=== PATIENT | female | born 1955 | race Caucasian/White ===

== ENCOUNTER → 2016-12-03 | Outpatient (CLI) | payer BC ==
[~2016-12-03] MED LIST: ATOR10TA82 PO; CALC0.2510 PO; CALCTAB5 PO; CHOL1000 PO; DILT180C70 PO; DOXY100C PO; GLC/500 PO
[2016-12-03 09:20] LABS: BASO % 0.6 %; BASO ABS # 0.04 K/uL (0-0.2); COMPLETE YES; HEMATOCRIT 42.2 % (37-47); IG% 0.2 %; LYMPH % 35.1 %; LYMPH ABS # 2.28 K/uL (1.2-3.4); MEAN CELL VOLUME 90.2 fL (80-100); MEAN CORPUSCULAR HEMOGLOBIN 30.1 pg (25-34); MEAN CORPUSCULAR HGB CONC 33.4 g/dl (32-36); MEAN PLATELET VOLUME 10.1 fL (7.4-10.4); NEUT % 56.1 %; PLATELET COUNT 238 K/uL (130-400); RED BLOOD COUNT 4.68 M/uL (4.2-5.4)
[2016-12-03 09:28] LABS: URINE APPEARANCE CLEAR (CLEAR); URINE BILIRUBIN NEG (NEG); URINE COLOR YELLOW; URINE EPITHELIAL CELL AUTO 0-5 /lpf (0-5); URINE NITRITE NEG (NEG); URINE PH 6.5 (4.5-7.5); URINE SPECIFIC GRAVITY 1.007 (1.000-1.030); UROBILINOGEN NEG (NEG); ZZUR CULT IF INDIC CLEAN CATCH NO
[2016-12-03 09:41] LABS: ESTIMATED AVERAGE GLUCOSE 140 mg/dl; HA1C FLAG Normal (Normal)
[2016-12-03 09:48] LABS: ALT/SGPT 37 U/L (12-78); AST/SGOT 25 U/L (15-37); BLOOD UREA NITROGEN 12 mg/dl (7-18); BUN/CREATININE RATIO 15.1 (10-20); CALCIUM 9.3 mg/dl (8.5-10.1); CARBON DIOXIDE 28 mmol/L (21-32); CHLORIDE 106 mmol/L (98-107); CREATININE 0.82 mg/dl (0.60-1.20); GLUCOSE 108 mg/dl (70-99); POTASSIUM 3.9 mmol/L (3.5-5.1); SODIUM 143 mmol/L (136-145)
[2016-12-03 09:50] LABS: ALB/GLOB RATIO 1.2 (0.9-2); ALKALINE PHOSPHATASE 114 U/L (45-117)
[2016-12-03 09:58] LABS: MANUAL MICROSCOPIC REQUIRED? NO; REVIEW REQ? NO
== END | disposition home or self-care (01) ==
LOC: C.LAB 08:44
PROVIDERS: ATTEND Internal Medicine
DX: E83.51 Hypocalcemia (principal); M81.0 Age-related osteoporosis without current pathological fracture; R73.03 Prediabetes

== ENCOUNTER → 2017-01-05 | Outpatient (CLI) | payer BC ==
--- NOTE | 2017-01-05 17:34 | DIAGNOSTIC IMAGING REPORT ---
LEFT HAND MIN 3 VIEWS ROUTINE, RIGHT HAND MIN 3 VIEWS ROUTINE CLINICAL HISTORY: M19.049 Hand arthritis. Rheumatoid arthritis. COMPARISON STUDY: None. FINDINGS: No fracture or dislocation within the right or left hand. Mild soft tissue swelling at the DIP and PIP joints of the hands. No erosions identified. The bones are osteopenic. Mild cartilage space at the STT joint and first carpometacarpal joints. There is also mild cartilage space narrowing at the MCP and PIP joints. Severe cartilage space narrowing with large marginal osteophytes at the DIP joints. IMPRESSION: 1. Bilateral hand osteoarthritis as described above most pronounced at the DIP joints. 2. Osteopenia. 3. No erosions identified within the hands. Electronically signed by: Trevin Siddiqui M.D. 01/05/2017 5:33 PM Dictated Date/Time: 01/05/2017 5:31 PM
[2017-01-05 19:38] LABS: LYME DISEASE AB IGG NEG (NEG); LYME DISEASE AB IGM NEG (NEG)
[2017-01-06 07:17] LABS: ESTIMATED AVERAGE GLUCOSE 140 mg/dl; HA1C FLAG Normal (Normal)
== END | disposition home or self-care (01) ==
LOC: C.RAD 16:42
PROVIDERS: ATTEND Internal Medicine
DX: M19.041 Primary osteoarthritis, right hand (principal); M19.042 Primary osteoarthritis, left hand; M85.842 Other specified disorders of bone density and structure, left hand

== ENCOUNTER 2017-01-07 14:56 | Emergency (ER) | payer BC ==
[~2017-01-07] VITALS: Ht 149.9 cm; Wt 65.0 kg
[~2017-01-07 14:56] MED LIST changes: -CALC0.2510 PO; -DOXY100C PO; -GLC/500 PO
[2017-01-07 15:00] VITALS: TEMP 36.7; Ht 149.9 cm; Wt 65.0 kg
[2017-01-07] MEDS ORDERED: ALBUT/IPRATROP 3MG/0.5MG NEB 3 ML VIAL INH STA (15:44)
[2017-01-07] MEDS ORDERED: SODIUM CHLORIDE 0.9% 1000ML 1,000 ML IV STA (15:44)
[2017-01-07] MEDS ORDERED: CALC0.2510 PO (16:04)
[2017-01-07] MEDS ORDERED: GLC/500 PO (16:05)
[2017-01-07 16:30] LABS: BASO % 0.2 %; BASO ABS # 0.01 K/uL (0-0.2); COMPLETE YES; HEMATOCRIT 38.6 % (37-47); LYMPH % 28.5 %; LYMPH ABS # 1.19 K/uL (1.2-3.4); MEAN CELL VOLUME 89.6 fL (80-100); MEAN CORPUSCULAR HEMOGLOBIN 30.2 pg (25-34); MEAN CORPUSCULAR HGB CONC 33.7 g/dl (32-36); MEAN PLATELET VOLUME 9.8 fL (7.4-10.4); MONO % 5.5 %; NEUT % 64.8 %; PLATELET COUNT 177 K/uL (130-400); RED BLOOD COUNT 4.31 M/uL (4.2-5.4); WHITE BLOOD COUNT 4.17 K/uL (4.8-10.8)
[2017-01-07 16:47] LABS: BUN/CREATININE RATIO 14.4 (10-20); CREATININE 0.75 mg/dl (0.60-1.20); POTASSIUM 3.4 mmol/L (3.5-5.1)
--- NOTE | 2017-01-07 17:28 | DIAGNOSTIC IMAGING REPORT ---
TWO VIEW CHEST CLINICAL HISTORY: Cough and dyspnea. FINDINGS: PA and lateral chest radiographs are compared to study dated 06/15/2015. The cardiomediastinal silhouette is unremarkable. Chronic interstitial thickening is similar to previous. There are patchy airspace opacities identified in the right upper lobe. The left lung appears clear. No pleural effusion or pneumothorax is seen. The skeletal structures are osteopenic. The bony thorax appears intact. IMPRESSION: There are patchy airspace opacities identified in the right upper lobe. This could represent pneumonia in the proper clinical setting. Clinical correlation will be required and radiographic follow-up to resolution is recommended. Electronically signed by: Jose Hays M.D. 01/07/2017 5:27 PM Dictated Date/Time: 01/07/2017 5:25 PM
[2017-01-07] MEDS ORDERED: DOXYCYCLINE HYCLATE 100 MG CAP PO STA (17:42)
[2017-01-07] MEDS ORDERED: DOXY100C PO (17:47)
--- NOTE | 2017-01-07 17:48 | EMERGENCY ROOM VISIT NOTE ---
History First contact with patient: 15:35 Chief Complaint: COUGH Stated Complaint: COUGH,DIZZINESS,WEAKNESS History of Present Illness The patient is a 61 year old female who presents to the Emergency Room with complaints of cough 5 days. The patient states that she has had a dry, tickling cough for the past 5 days. She states she has been running low-grade fevers. She was seen at urgent care earlier this week and given a prescription for Tessalon Perles. She states these do seem to help her cough at times. The cough has not been productive. She states that today, she was not hungry and did not eat much for breakfast or lunch. She was lightheaded and states that she had an episode where she felt like she had to pass out. She denies syncope. She does not smoke. She does report that 2 weeks ago, she drove home from [place] which was a [address] with [facility]. She denies hormone use. She denies any history of COPD or asthma. She denies any history of blood clots. She denies neck pain, headache, abdominal pain, nausea or vomiting. She denies hemoptysis. Review of Systems A complete 10 point review of systems was reviewed with the patient with pertinent positives and negatives as per history of present illness. All else were negative. Past Medical/Surgical History Medical Problems: (1) HTN (hypertension) Social History Smoking Status: Never Smoker Alcohol Use: none Drug Use: none Marital Status: Housing Status: lives with significant other Occupation Status: employed Current/Historical Medications Scheduled Atorvastatin (Lipitor), 10 MG PO QPM Calcitriol (Rocaltrol Cap), 0.25 MCG PO BID Diltiazem Hcl (Diltiazem Hcl), 180 MG PO DAILY Doxycycline Hyclate (Vibramycin), 100 MG PO BID Metformin Hcl (Glucophage), 500 MG PO BID Allergies Coded Allergies: Alendronate (Verified Allergy, Unknown, SEVERE ACID REFLUX, 06/15/15) Atenolol (Verified Allergy, Unknown, PALPITATIONS, 06/15/15) Mepivacaine (Verified Allergy, Unknown, TACHYCARDIA, 06/15/15) Metoprolol (Verified Allergy, Unknown, PALPITATIONS, 06/15/15) Codeine (Verified Adverse Reaction, Mild, GI upset, 06/15/15) Risedronate (Verified Adverse Reaction, Unknown, SEVERE REFLUX, 06/15/15) Physical Exam Vital Signs Date Time Temp Pulse Resp B/P (MAP) Pulse Ox O2 Delivery O2 Flow Rate FiO2 01/07/17 18:17 78 18 144/72 98 01/07/17 16:40 97 Room Air 01/07/17 15:00 36.7 95 18 126/78 94 Room Air Physical Exam VITALS: Vitals are noted on the nurse's note and reviewed by myself. Vital signs stable. GENERAL: This is a 61-year-old female, in no acute distress, nondiaphoretic, well-developed well-nourished. SKIN: The skin was without rashes. EARS: External auditory canals clear, tympanic membranes pearly busby without erythema or effusion bilaterally. EYES: Pupils equal round and reactive to light and accommodation. Conjunctivae without injection, sclerae without icterus. MOUTH: Mucous membranes moist. Tonsils are not enlarged. Pharynx without erythema or exudate. NECK: Supple without nuchal rigidity. No lymphadenopathy. HEART: Regular rate and rhythm without murmurs gallops or rubs. LUNGS: Clear to auscultation bilaterally without wheezes, rales or rhonchi. No retractions or accessory muscle use. ABDOMEN: soft, nontender. MUSCULOSKELETAL: full range of motion, strength 5/5. NEURO: Patient was alert and oriented to person place and time. Normal sensation to light and sharp touch. No focal neurological deficits. Medical Decision & Procedures ER Provider Diagnostic Interpretation: TWO VIEW CHEST CLINICAL HISTORY: Cough and dyspnea. FINDINGS: PA and lateral chest radiographs are compared to study dated 06/15/2015. The cardiomediastinal silhouette is unremarkable. Chronic interstitial thickening is similar to previous. There are patchy airspace opacities identified in the right upper lobe. The left lung appears clear. No pleural effusion or pneumothorax is seen. The skeletal structures are osteopenic. The bony thorax appears intact. IMPRESSION: There are patchy airspace opacities identified in the right upper lobe. This could represent pneumonia in the proper clinical setting. Clinical correlation will be required and radiographic follow-up to resolution is recommended. Laboratory Results 01/07/17 16:15 Red Blood Count 4.31, Mean Corpuscular Volume 89.6, Mean Corpuscular Hemoglobin 30.2, Mean Corpuscular Hemoglobin Concent 33.7, Mean Platelet Volume 9.8, Neutrophils (%) (Auto) 64.8, Lymphocytes (%) (Auto) 28.5, Monocytes (%) (Auto) 5.5, Eosinophils (%) (Auto) 1.0, Basophils (%) (Auto) 0.2, Neutrophils # (Auto) 2.70, Lymphocytes # (Auto) 1.19, Monocytes # (Auto) 0.23, Eosinophils # (Auto) 0.04, Basophils # (Auto) 0.01 01/07/17 16:15 Test 01/07/17 16:15 White Blood Count 4.17 K/uL (4.8-10.8) Red Blood Count 4.31 M/uL (4.2-5.4) Hemoglobin 13.0 g/dL (12.0-16.0) Hematocrit 38.6 % (37-47) Mean Corpuscular Volume 89.6 fL (80-100) Mean Corpuscular Hemoglobin 30.2 pg (25-34) Mean Corpuscular Hemoglobin Concent 33.7 g/dl (32-36) Platelet Count 177 K/uL (130-400) Mean Platelet Volume 9.8 fL (7.4-10.4) Neutrophils (%) (Auto) 64.8 % Lymphocytes (%) (Auto) 28.5 % Monocytes (%) (Auto) 5.5 % Eosinophils (%) (Auto) 1.0 % Basophils (%) (Auto) 0.2 % Neutrophils # (Auto) 2.70 K/uL (1.4-6.5) Lymphocytes # (Auto) 1.19 K/uL (1.2-3.4) Monocytes # (Auto) 0.23 K/uL (0.11-0.59) Eosinophils # (Auto) 0.04 K/uL (0-0.5) Basophils # (Auto) 0.01 K/uL (0-0.2) RDW Standard Deviation 43.4 fL (36.4-46.3) RDW Coefficient of Variation 13.1 % (11.5-14.5) Immature Granulocyte % (Auto) 0.0 % Immature Granulocyte # (Auto) 0.00 K/uL (0.00-0.02) D-Dimer 230 ug/L FEU (0-500) Anion Gap 7.0 mmol/L (3-11) Est Creatinine Clear Calc Drug Dose 65.4 ml/min Estimated GFR () 100.4 Estimated GFR (Non- 86.6 BUN/Creatinine Ratio 14.4 (10-20) Calcium Level 8.0 mg/dl (8.5-10.1) Medications Administered Medications (Trade) Dose Ordered Sig/Lala Route Start Time Stop Time Status Last Admin Dose Admin Sodium Chloride 1,000 ml @ 999 mls/hr Q1H1M STAT IV 01/07/17 15:44 01/07/17 16:44 DC 01/07/17 16:15 999 MLS/HR Albuterol/ Ipratropium (Duoneb) 3 ml NOW STAT INH 01/07/17 15:44 01/07/17 15:46 DC 01/07/17 16:03 3 ML Doxycycline Hyclate (Vibramycin Cap) 200 mg NOW STAT PO 01/07/17 17:42 01/07/17 17:44 DC 01/07/17 17:56 200 MG Albuterol (Ventolin Hfa Inhaler) 2 puffs NOW ONCE INH 01/07/17 18:00 01/07/17 18:01 DC 01/07/17 17:57 60 PUFFS ECG Rate (beats per minute): 76 Rhythm: normal sinus Findings: no acute ischemic change, no ectopy Change: no significant change ED Course The patient was evaluated as above. Labs were drawn and IV access was obtained. Patient was medicated with a DuoNeb treatment. Chest x-ray was performed and read by radiology as above. Patient was reevaluated and felt better after the DuoNeb treatment. She was given a home pack of doxycycline and Ventolin inhaler. Discharge instructions were reviewed with the patient. The patient verbalized understanding of my assessment and treatment plan and was discharged home in good condition. Medical Decision Differential diagnosis includes upper respiratory infection, pneumonia, PE, few PE exacerbation, asthma exacerbation, among others. The patient is a 61-year-old female who presents today complaining of persistent cough and presyncope today. EKG showed a normal sinus rhythm. No arrhythmia. Labs revealed no leukocytosis, anemia or concerning electrolyte abnormalities. D-dimer was not elevated. Chest x-ray did show evidence of a right upper lobe pneumonia. The patient will be placed on doxycycline. She was given a Ventolin inhaler. She was instructed to follow-up with her primary care provider for reevaluation. Based on the patient's presentation and work up, I feel the patient is stable for outpatient treatment. The patient was educated to return to the emergency department for any worsening of their current condition or new/concerning symptoms. She will follow up with her primary care provider. Medication reconciliation: I attest that I have personally reviewed the patient' s current medication list. Impression Primary Impression: Pneumonia Departure Information Dispostion Home / Self-Care Condition GOOD Prescriptions Doxycycline Hyclate (VIBRAMYCIN) 100 Mg Cap 100 MG PO BID for 7 Days, #14 CAP Prov: Yina Qiu .GEN 01/07/17 Referrals Brando Henderson M.D. (PCP) Patient Instructions My [facility] Additional Instructions You were prescribed doxycycline to be taken twice daily as prescribed. This is an antibiotic. All antibiotics have the potential to cause diarrhea. Stop this medication and contact a medical provider if you were to develop any significant adverse side effects including: wheezing, shortness of breath, passing out, vomiting, or a diffuse rash. Always take antibiotics as directed and COMPLETE the ENTIRE course regardless of the improvement of your symptoms. Use the Ventolin inhaler as needed for cough/shortness of breath. Continue to use the Tessalon Perles as needed. Rest and stay hydrated. Follow-up with your primary care provider within one week. Return to the emergency department with worsening difficulty breathing, chest pain or any other new/concerning symptoms. Problem Qualifiers Primary Impression: Pneumonia Pneumonia type: due to unspecified organism Laterality: right Lung location : upper lobe of lung Qualified Codes: J18.1 - Lobar pneumonia, unspecified organism
[2017-01-07] MEDS ORDERED: ALBUTEROL HFA 8 GM INHALER INH ONE (18:00)
[2017-01-07 18:17] VITALS: BP 144/72; PULSE 78; O2SAT 98
== END 2017-01-07 18:05 | disposition home or self-care (01) ==
LOC: C.EDB 14:57 → C.EDA 18:05
DX: J18.9 Pneumonia, unspecified organism (principal); I10 Essential (primary) hypertension; Z79.84 Long term (current) use of oral hypoglycemic drugs; Z79.899 Other long term (current) drug therapy; Z88.5 Allergy status to narcotic agent; Z88.8 Allergy status to other drugs, medicaments and biological substances

== ENCOUNTER → 2017-01-16 | Outpatient (CLI) | payer BC ==
[~2017-01-16] MED LIST changes: +CALC0.2510 PO; -CALCTAB5 PO; -CHOL1000 PO; +GLC/500 PO
[2017-01-16 12:15] LABS: BASO % 0.1 %; BASO ABS # 0.01 K/uL (0-0.2); COMPLETE YES; HEMATOCRIT 40.2 % (37-47); IG% 0.1 %; LYMPH % 28.6 %; LYMPH ABS # 2.01 K/uL (1.2-3.4); MEAN CELL VOLUME 89.9 fL (80-100); MEAN CORPUSCULAR HEMOGLOBIN 30.2 pg (25-34); MEAN CORPUSCULAR HGB CONC 33.6 g/dl (32-36); MEAN PLATELET VOLUME 9.9 fL (7.4-10.4); MONO % 6.1 %; NEUT % 64.1 %; PLATELET COUNT 335 K/uL (130-400); RED BLOOD COUNT 4.47 M/uL (4.2-5.4); WHITE BLOOD COUNT 7.04 K/uL (4.8-10.8)
[2017-01-16 12:31] LABS: BLOOD UREA NITROGEN 10 mg/dl (7-18); BUN/CREATININE RATIO 11.7 (10-20); CARBON DIOXIDE 23 mmol/L (21-32); CHLORIDE 107 mmol/L (98-107); CREATININE 0.84 mg/dl (0.60-1.20); GLUCOSE 161 mg/dl (70-99); POTASSIUM 3.9 mmol/L (3.5-5.1); SODIUM 141 mmol/L (136-145)
== END | disposition home or self-care (01) ==
LOC: C.LABBFT 10:29
PROVIDERS: ATTEND Physician Assistant Medical
DX: Z00.00 Encounter for general adult medical examination without abnormal findings (principal); J18.9 Pneumonia, unspecified organism

== ENCOUNTER → 2017-02-15 | Outpatient (CLI) | payer BC ==
[~2017-02-15] MED LIST changes: -ATOR10TA82 PO; +ATOR10TA88 PO
--- NOTE | 2017-02-15 18:46 | DIAGNOSTIC IMAGING REPORT ---
CHEST 2 VIEWS ROUTINE CLINICAL HISTORY: Follow-up pneumonia. Health maintenance. COMPARISON STUDY: History of January 17, 2017. FINDINGS: There is no pneumothorax or pleural effusion. Right upper lobe airspace opacity shown on exam of January 07, 2017 has resolved. Opacity along the left heart border is unchanged since earlier exams and suggests epicardial fat pad. Cardiac size is normal. There is no evidence of pulmonary edema. IMPRESSION: No acute cardiopulmonary findings. Resolution of right upper lobe pneumonia shown on exam of January 07, 2017. Electronically signed by: Shon Gerber M.D. 02/15/2017 6:45 PM Dictated Date/Time: 02/15/2017 6:43 PM
== END | disposition home or self-care (01) ==
LOC: C.RAD 16:58
PROVIDERS: ATTEND Physician Assistant Medical
DX: Z00.00 Encounter for general adult medical examination without abnormal findings (principal); J18.9 Pneumonia, unspecified organism

== ENCOUNTER → 2017-02-24 | Outpatient (CLI) | payer BC ==
--- NOTE | 2017-02-24 15:30 | MAMMOGRAPHY REPORT ---
UNILATERAL LEFT DIGITAL DIAGNOSTIC MAMMOGRAM TOMOSYNTHESIS WITH CAD AND TARGETED LEFT ULTRASOUND: 02/05 CLINICAL HISTORY: 61-year-old woman presents after her physician felt an area of thickening in the 11 :00 left breast. Patient is not currently able to feel the lump. No skin erythema or nipple dischar ge. Family history of breast cancer = grandmother. TECHNIQUE: Left breast tomosynthesis in addition to standard 2D mammography was performed. Current st udy was also evaluated with a Computer Aided Detection (CAD) system. COMPARISON: Comparison is made to exams dated: 06/09/2016 mammogram, 07/23/2014 mammogram, 07/22/2013 mammogram, 07/16/2012 mammogram, 06/20/2011 mammogram, and 06/17/2010 mammogram - [facility]. BREAST COMPOSITION: There are scattered areas of fibroglandular density in the left breast. FINDINGS: There are 2 stable circumscribed subcentimeter masses in the left upper outer quadrant, sta ble comparing back to at least 06/13/2008, most likely intramammary lymph nodes. There are a few dot ign rim calcifications in the anterior left breast. A triangular skin palpable marker overlies the u pper inner middle one third of the left breast, denoting the area of thickening pointed out by the pa tient. There is no evidence of a new suspicious mass, architectural distortion or cluster of microca lcifications, particularly near the area of palpable concern. Targeted ultrasound was performed in the 10:00, 11:00 and 12:00 axes of the left breast to evaluate f or the abnormality identified by the patient's physician. Sonographically normal tissue is seen with out a discrete solid or cystic mass. IMPRESSION: ACR BI-RADS CATEGORY 2: BENIGN, TARGETED ULTRASOUND ACR BI-RADS CATEGORY 2: BENIGN Stable mammographic appearance of the left breast. There is no mammographic or targeted sonographic evidence of malignancy, or other suspicious abnormality to explain the palpable finding in the left 1 1:00 breast. Therefore, clinical follow-up is recommended as biopsy of a clinically suspicious mass should not be precluded by negative imaging. Otherwise, recommend return to annual screening schedul e. Approximately 10% of breast cancers are not detected with mammography. A negative mammographic report should not delay biopsy if a clinically suggestive mass is present. Madie Flores M.D. ay/:02/24/2017 13:33:21 Financial Rep: Farzaneh Lobato, [facility] letter sent: Normal /2 BI-RADS Code: ACR BI-RADS Category 2: Benign Ultrasound BI-RADS: ACR BI-RADS Category 2: Benign
== END | disposition home or self-care (01) ==
LOC: C.MAMM 13:07
PROVIDERS: ATTEND Obstetrics & Gynecology
DX: R92.8 Other abnormal and inconclusive findings on diagnostic imaging of breast (principal)

== ENCOUNTER → 2017-03-07 | Outpatient (CLI) | payer BC | END | disposition home or self-care (01) | LOC: C.PATH 08:50 | PROVIDERS: ATTEND Obstetrics & Gynecology | DX: N64.59 Other signs and symptoms in breast (principal) ==

== ENCOUNTER → 2017-04-06 | Outpatient (CLI) | payer BC ==
[2017-04-06 12:27] LABS: CALCIUM 8.9 mg/dl (8.5-10.1)
[2017-04-06 12:34] LABS: CHOLESTEROL/HDL RATIO 2.5
[2017-04-12 16:43] LABS: IGA SERUM 180 mg/dL (81-463); TIS TRANS IGA 1 U/mL (<4)
== END | disposition home or self-care (01) ==
LOC: C.LABBFT 07:43
PROVIDERS: ATTEND Internal Medicine Endocrinology, Diabetes & Metabolism
DX: M81.0 Age-related osteoporosis without current pathological fracture (principal); E55.9 Vitamin D deficiency, unspecified; E78.00 Pure hypercholesterolemia, unspecified; R73.03 Prediabetes

== ENCOUNTER → 2017-06-12 | Outpatient (CLI) | payer BC ==
[~2017-06-12] MED LIST changes: +ATOR10TA82 PO; -ATOR10TA88 PO
--- NOTE | 2017-06-13 07:46 | MAMMOGRAPHY REPORT ---
BILATERAL DIGITAL SCREENING MAMMOGRAM TOMOSYNTHESIS WITH CAD: 06/12/2017 CLINICAL HISTORY: Routine screening. Patient has no complaints. TECHNIQUE: Breast tomosynthesis in addition to standard 2D mammography was performed. Current study was also evaluated with a Computer Aided Detection (CAD) system. COMPARISON: Comparison is made to exams dated: 02/24/2017 ultrasound, 02/24/2017 mammogram, 06/09/2016 mammogram, 07/22/2013 mammogram, 07/23/2014 mammogram, and 07/16/2012 mammogram - [facility]. BREAST COMPOSITION: There are scattered areas of fibroglandular density in both breasts. FINDINGS: There are a few benign rim calcifications in the breasts. No suspicious mass, architectura l distortion or cluster of suspicious microcalcifications is seen. IMPRESSION: ACR BI-RADS CATEGORY 1: NEGATIVE There is no mammographic evidence of malignancy. A 1 year screening mammogram is recommended. The pa tient will receive written notification of the results. Approximately 10% of breast cancers are not detected with mammography. A negative mammographic report should not delay biopsy if a clinically suggestive mass is present. Madie Flores M.D. ay/:06/12/2017 20:29:14 Medical Microbiologist: Jason Palm, M, [facility] letter sent: Normal 1/2 BI-RADS Code: ACR BI-RADS Category 1: Negative
== END | disposition home or self-care (01) ==
LOC: C.MAMM 08:33
PROVIDERS: ATTEND Obstetrics & Gynecology
DX: Z12.31 Encounter for screening mammogram for malignant neoplasm of breast (principal)

== ENCOUNTER → 2017-07-12 | Outpatient (CLI) | payer BC ==
[2017-07-12 15:34] LABS: BASO % 0.4 %; BASO ABS # 0.03 K/uL (0-0.2); COMPLETE YES; EOS % 2.3 %; HEMATOCRIT 39.3 % (37-47); IG% 0.2 %; LYMPH % 28.2 %; LYMPH ABS # 2.33 K/uL (1.2-3.4); MEAN CELL VOLUME 89.9 fL (80-100); MEAN CORPUSCULAR HEMOGLOBIN 29.5 pg (25-34); MEAN CORPUSCULAR HGB CONC 32.8 g/dl (32-36); MEAN PLATELET VOLUME 10.2 fL (7.4-10.4); MONO % 5.7 %; NEUT % 63.2 %; PLATELET COUNT 244 K/uL (130-400); RED BLOOD COUNT 4.37 M/uL (4.2-5.4); WHITE BLOOD COUNT 8.26 K/uL (4.8-10.8)
[2017-07-12 16:00] LABS: ALT/SGPT 26 U/L (12-78); AST/SGOT 19 U/L (15-37); BLOOD UREA NITROGEN 12 mg/dl (7-18); CALCIUM 9.5 mg/dl (8.5-10.1); CARBON DIOXIDE 26 mmol/L (21-32); CHLORIDE 106 mmol/L (98-107); CREATININE 0.78 mg/dl (0.60-1.20); GLUCOSE 107 mg/dl (70-99); POTASSIUM 3.6 mmol/L (3.5-5.1); SODIUM 139 mmol/L (136-145)
[2017-07-12 16:03] LABS: ALB/GLOB RATIO 1.3 (0.9-2); ALKALINE PHOSPHATASE 101 U/L (45-117)
== END | disposition home or self-care (01) ==
LOC: C.LAB1850 14:36
PROVIDERS: ATTEND Internal Medicine
DX: M81.0 Age-related osteoporosis without current pathological fracture (principal); E78.00 Pure hypercholesterolemia, unspecified; E55.9 Vitamin D deficiency, unspecified; L29.9 Pruritus, unspecified

== ENCOUNTER → 2017-07-26 | Outpatient (CLI) | payer BC ==
[2017-07-26 13:14] LABS: ESTIMATED AVERAGE GLUCOSE 126 mg/dl; HA1C FLAG Normal (Normal)
== END | disposition home or self-care (01) ==
LOC: C.LABBFT 08:24
PROVIDERS: ATTEND Internal Medicine
DX: E11.9 Type 2 diabetes mellitus without complications (principal)

== ENCOUNTER → 2018-03-28 | Outpatient (CLI) | payer BC, OTHER ==
[2018-03-28 12:39] LABS: BASO % 0.3 %; BASO ABS # 0.02 K/uL (0-0.2); EOS ABS # 0.15 K/uL (0-0.5); HEMATOCRIT 41.2 % (37-47); HEMOGLOBIN 13.5 g/dL (12.0-16.0); IG# 0.02 K/uL (0.00-0.02); LYMPH % 35.4 %; LYMPH ABS # 2.59 K/uL (1.2-3.4); MEAN CELL VOLUME 90.4 fL (80-100); MEAN CORPUSCULAR HEMOGLOBIN 29.6 pg (25-34); MEAN CORPUSCULAR HGB CONC 32.8 g/dl (32-36); MEAN PLATELET VOLUME 10.5 fL (7.4-10.4); MONO % 5.7 %; MONO ABS # 0.42 K/uL (0.11-0.59); NEUT % 56.3 %; NEUT ABS # 4.12 K/uL (1.4-6.5); PLATELET COUNT 304 K/uL (130-400); RED CELL DISTRIBUTION WIDTH CV 13.5 % (11.5-14.5); RED CELL DISTRIBUTION WIDTH SD 44.2 fL (36.4-46.3); WHITE BLOOD COUNT 7.32 K/uL (4.8-10.8)
[2018-03-28 13:01] LABS: ALKALINE PHOSPHATASE 107 U/L (45-117); ALT/SGPT 24 U/L (12-78); AST/SGOT 19 U/L (15-37); BLOOD UREA NITROGEN 10 mg/dl (7-18); CALCIUM 9.4 mg/dl (8.5-10.1); CARBON DIOXIDE 25 mmol/L (21-32); CREATININE 0.78 mg/dl (0.60-1.20); GLUCOSE 93 mg/dl (70-99); HEMOGLOBIN A1C 6.3 % (4.5-5.6); POTASSIUM 3.9 mmol/L (3.5-5.1); SODIUM 140 mmol/L (136-145); TOTAL PROTEIN 7.6 gm/dl (6.4-8.2)
[2018-03-28 13:31] LABS: CREATININE RANDOM URINE 28.2 mg/dl
== END | disposition home or self-care (01) ==
LOC: C.LABBFT 09:20
PROVIDERS: ATTEND Nurse Practitioner
DX: E11.9 Type 2 diabetes mellitus without complications (principal); M81.0 Age-related osteoporosis without current pathological fracture; E78.00 Pure hypercholesterolemia, unspecified; E55.9 Vitamin D deficiency, unspecified; R23.2 Flushing

== ENCOUNTER 2024-07-12 06:12 | Inpatient (IN) ==
--- NOTE | 2024-06-19 11:55 | PAT Medication Instructions ---
Medication Instructions Date of Service June 19, 2024 Home Medications Medication Instructions Recorded betamethasone dipropionate 0.05 % 1 applic topical UD PRN SKIN RASH 05/04/22 lotion #60 mL atorvastatin 20 mg tablet 20 mg PO QPM #90 tabs 07/05/23 diltiazem HCl 240 mg 240 mg PO QPM #90 caps 10/19/23 capsule,extended release 24 hr calcitriol 0.5 mcg capsule 0.5 mcg PO BID #180 caps 04/15/24 metformin 500 mg tablet,extended 500 mg PO BID #180 tabs 04/15/24 release 24 hr cholecalciferol (vitamin D3) 50 mcg (2,000 unit) capsule 2,000 units PO QAM mecobalamin (vitamin B12) 1,000 mcg chewable tablet 1,000 mcg PO QPM betamethasone dipropionate 0.05 % lotion 1 applic topical UD PRN SKIN RASH famotidine 20 mg tablet 20 mg PO QAM atorvastatin 20 mg tablet 20 mg PO QPM diltiazem HCl 240 mg capsule,extended release 24 hr 240 mg PO QPM olmesartan 20 mg tablet 10 mg PO QAM calcitriol 0.5 mcg capsule 0.5 mcg PO BID metformin 500 mg tablet,extended release 24 hr 500 mg PO BID gabapentin 300 mg capsule 300 mg PO BID STOP taking 24 hours before surgery betamethasone dipropionate 0.05 % lotion 1 applic topical UD PRN SKIN RASH DO NOT take the morning of surgery cholecalciferol (vitamin D3) 50 mcg (2,000 unit) capsule 2,000 units PO QAM olmesartan 20 mg tablet 10 mg PO QAM calcitriol 0.5 mcg capsule 0.5 mcg PO BID metformin 500 mg tablet,extended release 24 hr 500 mg PO BID Take morning of surgery With a small sip of water, OTHERWISE NOTHING TO EAT OR DRINK AFTER MIDNIGHT: famotidine 20 mg tablet 20 mg PO QAM gabapentin 300 mg capsule 300 mg PO BID Take evening before surgery mecobalamin (vitamin B12) 1,000 mcg chewable tablet 1,000 mcg PO QPM atorvastatin 20 mg tablet 20 mg PO QPM diltiazem HCl 240 mg capsule,extended release 24 hr 240 mg PO QPM calcitriol 0.5 mcg capsule 0.5 mcg PO BID metformin 500 mg tablet,extended release 24 hr 500 mg PO BID gabapentin 300 mg capsule 300 mg PO BID Other Notes If you have any questions please call us at [phone] or [phone] or [phone] or [phone]
--- NOTE | 2024-06-25 11:06 | Anesthesiology Consultation ---
Date of Service June 25, 2024 Assessment & Plan (1) Encounter for pre-operative examination: - Check BSG DOS - Infectious disease screening: Per assessment on 06/25/24- No known recent infectious disease contacts or current infectious disease symptoms. - S/P Laparoscopic Repair of Incisional Hernia Right Lower Quadrant with 10cm SurgiMesh (12/01/22): Grade view 1, MAC#3, ETT 7 at [facility] - PCP visit (06/14/24): "Patient's class I risk equals 0 which is 3.9%. Will review chest x-ray, EKG and laboratory workup when available. Will add addendum when studies are available." > Preop testing reviewed and final preop comment provided by PCP is separate workload message detailed below* - Preop testing: Preop CXR done 06/25/24 notes "Findings concerning for pulmonary nodule measuring 1.6 cm. No comparison to assess stability. Recommend CT chest for further evaluation." Chest CT done 06/27/24 and reviewed by PCP > PCP workload note (06/27/24): "Patient had her CT scan performed today. No pulmonary nodules noted. Corresponding abnormality on chest x-ray was from osteophytes on thoracic spine. She is is medically stable as she can be for upcoming surgery." Chart Review Chart Review: Acceptable Risk for Surgery and Patient seen in Pre Admission Testing Teaching & Discussion Pre-Anesthesia Teaching/Discussion Notes: Instructed NPO after midnight before surgery,except medications with 15 cc of water. Medication instructions provided according to the PAT guidelines. History Surgery Operation Date: 07/12/24 07:30 Proposed Procedures p L5-S1 Transforaminal Lumbar Interbody Fusion with Decompression, with Spinal Cord Monitoring - Jose Dewitt MD Height/Weight Height: 4 ft 11 in Weight: 64 kg Allergies Allergy/AdvReac Type Severity Reaction Status Date / Time oxycodone [From Percocet] AdvReac Severe Vomiting Verified 06/19/24 08:34 alendronate sodium AdvReac Intermediate Severe Verified 06/25/24 10:51 acid reflux atenolol AdvReac Intermediate Palpitation Verified 06/25/24 10:51 s empagliflozin AdvReac Intermediate Sore throat Verified 06/25/24 10:51 [From Jardiance] mepivacaine AdvReac Intermediate Tachycardia Verified 06/25/24 10:51 metoprolol AdvReac Intermediate Palpitation Verified 06/25/24 10:51 s risedronate sodium AdvReac Intermediate Severe Verified 06/25/24 10:51 reflux codeine AdvReac Mild GI upset Verified 06/19/24 08:34 Medications Home Medications Medication Instructions Recorded Confirmed Last Taken cholecalciferol (vitamin D3) 50 2,000 units PO QAM #30 caps 05/12/19 06/19/24 11/30/22 07:00 mcg (2,000 unit) capsule mecobalamin (vitamin B12) 1,000 1,000 mcg PO QPM 06/02/21 06/19/24 11/30/22 19:00 mcg chewable tablet betamethasone dipropionate 0.05 % 1 applic topical UD PRN SKIN RASH 05/04/22 06/19/24 08/24/22 lotion #60 mL famotidine 20 mg tablet 20 mg PO QAM 11/24/22 06/19/24 12/01/22 04:45 atorvastatin 20 mg tablet 20 mg PO QPM #90 tabs 07/05/23 06/19/24 Unknown diltiazem HCl 240 mg 240 mg PO QPM #90 caps 10/19/23 06/19/24 Unknown capsule,extended release 24 hr olmesartan 20 mg tablet 10 mg PO QAM 04/02/24 06/19/24 Unknown calcitriol 0.5 mcg capsule 0.5 mcg PO BID #180 caps 04/15/24 06/19/24 Unknown metformin 500 mg tablet,extended 500 mg PO BID #180 tabs 04/15/24 06/19/24 Unknown release 24 hr gabapentin 300 mg capsule 300 mg PO BID 06/19/24 06/19/24 Unknown Past Medical History Medical History Carotid bruit Hx noted per remote records. Carotid duplex done 08/21/13 for evaluation of carotid bruit- B/L ICA "withing normal limits by duplex imaging"/No stenosis found. No carotid bruit noted at PAT visit 06/25/24 Diabetes mellitus Diverticulosis of colon Foraminal stenosis of lumbosacral region GERD (gastroesophageal reflux disease) History of colon polyps History of endometriosis History of nephrolithiasis (04/2023) Unsure if passed, no current pain Hx of irritable bowel syndrome Hypercholesteremia Hypertension Irritable bowel syndrome Lumbosacral disc herniation Lumbosacral spondylosis Osteoporosis Exercise / Class Metabolic Activity II 4-5 Yardwork/Stairs/Walk up hill (one FS: No CP, no SOB) Past Family History Family History Brother Myocardial infarction Grandmother (Maternal) Breast cancer Stroke Sister Diabetes Obesity Mother Diabetes Heart disease Family history of colonic polyps Hypertension Father Heart disease Hypertension Other No family history of adverse response to anesthesia Denies family history of Ovarian cancer Prostate cancer Colorectal cancer Past Surgical History Surgical History H/O section 1981 History of anesthesia reaction Slow to wake after hernia repair (2014) History of incisional hernia repair Laparoscopic Repair of Incisional Hernia Right Lower Quadrant with 10cm SurgiMesh (12/01/22): Grade view 1, MAC#3, ETT 7 at [facility] Abd wall exploration resection inc fat hernia repair (2014) History of laparoscopy multiple Hx of colonoscopy S/P anal fissurectomy (2004) Tear in rectum repaired S/P appendectomy S/P arthroscopy of shoulder (2006) left Rotator cuff S/P dilation and curettage S/P YOLY-BSO (total abdominal hysterectomy and bilateral salpingo-oophorectomy) (2004) S/P wrist surgery (2010) right Past Anesthesia History No Family Hx of Anesthesia Complications and Other (Slow to wake after hernia repair (2014)) History of PONV No Hx of PONV and No Hx of Motion Sickness Social History Smoking Status: Never smoker Do You Dip or Chew Tobacco: No Hx Alcohol Use: No Hx Substance Use: No substance use type: does not use Review of Systems Patient denies chest pain, shortness of breath, dyspnea on exertion, fever, chills, cough, wheezing, palpitations. Physical Exam Vital Signs BP 115/72 P 80 TEMP 98.6 SP02 95%RA RESP 18 Physical Full cervical extension range of motion. Full TMJ range of motion. TMD 3 finger breaths Mallampati Score II Dentition: upper/lower partials Lungs: clear throughout to auscultation Cardiac: regular rate and rhythm, no murmurs noted Spine: normal Carotid arteries: negative bruit Extremities: no LE edema Lab Results Anesthesia Preop Results Results Anesthesia Widget: WBC 10.51 K/ul (4.8-10.8) 06/25/24 Hgb 12.0 g/dl (12.0-16.0) 06/25/24 Hct 36.5 % (37.0-47.0) L 06/25/24 Plt 299 K/uL (130-400) 06/25/24 Na 139 mmol/L (136-145) 06/25/24 K 4.1 mmol/L (3.5-5.1) 06/25/24 Cl 106 mmol/L (98-107) 06/25/24 CO2 23 mmol/L (21-32) 06/25/24 BUN 20 mg/dl (6-23) 06/25/24 Creat 1.12 mg/dl (0.6-1.2) 06/25/24 Glucose Level 157 mg/dl (70-99(Fasting)) H 06/25/24 PT 10.1 Seconds (9.0-12.0) 06/25/24 PTT 24 Seconds (21-31) 06/25/24 INR 0.9 (0.9-1.1) 06/25/24 HA1c 6.7 % (4.5-5.6) H 06/25/24 Blood Type A Positive 06/25/24 Antibody Screen NEGATIVE 06/25/24 Testing Electrocardiogram Date: 02/29/24 SR at 75bpm. "Normal ECG" Chest X-Ray Date: 06/25/24 FINDINGS: The cardiomediastinal silhouette and pulmonary vasculature appear w ithin normal limits. 1.6 cm nodular density seen on the lateral view posteriorly. No infiltrate, pleural effusion or pneumothorax. No acute osseous abnormality evident. IMPRESSION: Findings concerning for pulmonary nodule measuring 1.6 cm. No comparison to assess stability. Recommend CT chest for further evaluation. Chest CT Date: 06/27/24 IMPRESSION: 1. No acute intrathoracic abnormality. 2. No suspicious pulmonary nodules. The questioned nodular density on the comparison chest radiographs corresponds to anterior bridging osteophytes at T10-T11. 3. Extensive coronary artery calcifications. Echocardiogram Date: 03/22/24 EF 65-70%. No regional wall motion abnormality. No thrombus. Grade 1 diastolic dysfunction. No significant valvular disease. "This was essentially a normal study." Other Testing Cardiac event monitor Date: 03/28/24 Rare PACs/PVCs. Sinus tachycardia (max HR 106 bpm). Sinus bradycardia (min HR 53 bpm). No pauses greater than 2 seconds or high-grade AV block. 5 symptomatic episodes for shortness of breath, lightheadedness, and dizziness. All of these correlated to normal sinus rhythm.
[~2024-07-12 06:12] MED LIST changes: -ATOR10TA82 PO; -CALC0.2510 PO; -DILT180C70 PO; -GLC/500 PO; +LR 15ML/HR IV SCH
[2024-07-12] MEDS ORDERED: PROPOFOL IV EMULSION 10 MG/ML 20 ML VIAL IV ONE (06:45)
[2024-07-12] MEDS ORDERED: LIDOCAINE 2% 2 ML VIAL/AMP(20MG/ML) INFIL ONE (06:45)
[2024-07-12] MEDS ORDERED: ROCURONIUM BROMIDE 10 MG/ML 5 ML VIAL IV ONE (06:45)
[2024-07-12] MEDS ORDERED: MIDAZOLAM HCL 1 MG/ML 2ML VIAL ONE (06:45)
[2024-07-12] MEDS ORDERED: fentaNYL citrate PF 100 MCG/2 ML VIAL ONE (06:46)
[2024-07-12] MEDS ORDERED: SUCCINYLCHOLINE CHLORIDE 20 MG/ML 10 ML VIAL IV ONE (06:51)
[2024-07-12] MEDS ORDERED: REMIFENTANIL HCL 1 MG VIAL IV ONE ×3 (06:55→11:11)
[2024-07-12] MEDS: LR 60ML/HR IV SCH (06:56)
[2024-07-12] MEDS: SODIUM CHLORIDE 0.9% 1,000 ML IV SCH (06:57)
--- NOTE | 2024-07-12 07:22 | History & Physical Bridge Note ---
Date of Service July 12, 2024 History & Physical Bridge Note I have examined the patient, reviewed the History & Physical and in the interval since the performance of the History & Physical I have noted the following changes of clinical significance: no changes noted. Plan for L5-S1 TLIF, explained possible need to extend to L4 with screws if not able to get in large enough screws at L5. Patient agrees.
[2024-07-12] MEDS ORDERED: ATROPINE SULFATE 0.1 MG/ML 10ML SYR IV PRN (07:28)
[2024-07-12] MEDS ORDERED: ePHEDrine sulfate 50 MG/ML AMP IV PRN (07:28)
[2024-07-12] MEDS ORDERED: DROPERIDOL 5 MG/2 ML VIAL IV PRN (07:28)
[2024-07-12] MEDS ORDERED: PROMETHAZINE HCL 6.25 MG in SODIUM CHLORIDE 0.9% 50 ML IV PRN (07:28)
[2024-07-12] MEDS ORDERED: KETAMINE HCL 10MG/ML SYR ONE (08:42)
[2024-07-12] MEDS: ceFAZolin 2000MG 2,000 MG/15 ML SYR IV SCH ×2 (09:03→17:15)
[2024-07-12] MEDS ORDERED: ePHEDrine sulfate 50 MG/5 ML SYR ONE (09:29)
[2024-07-12] MEDS ORDERED: PHENYLEPHRINE 100MCG/ML 5ML SYR ONE (09:29)
[2024-07-12] MEDS ORDERED: PROPOFOL IV EMULSION 10 MG/ML 100 ML VIAL IV ONE ×2 (09:30→10:42)
[2024-07-12] MEDS ORDERED: PHENYLEPHRINE HCL 10 MG/ML VIAL ONE (10:43)
[2024-07-12] MEDS: HEPARIN (PORCINE) 1000 UNIT/ML 10 ML (CATH LAB USE ONLY) ONE (10:49)
[2024-07-12] MEDS ORDERED: SUGAMMADEX SODIUM 200 MG/2 ML VIAL IV ONE (11:59)
[2024-07-12] MEDS: FLOSEAL HEMOSTATIC MATRIX 10ML TOP ONE (12:08)
[2024-07-12] MEDS: VANCOMYCIN HCL 1000MG/20ML VIAL ONE (12:09)
[2024-07-12] MEDS ORDERED: ONDANSETRON INJ 2 MG/ML 2 ML VIAL ONE (12:09)
[2024-07-12] MEDS: BUPIVACAINE 0.5 % 5 MG/1 ML MPF 30ML VIAL ONE (12:10)
[2024-07-12] MEDS ORDERED: ACETAMINOPHEN 1000 MG/100 ML IV IV ONE (12:12)
--- NOTE | 2024-07-12 12:44 | Post Operative Brief Note ---
PG Immediate Post Op with CF Date of Surgery July 12, 2024 Pre & Post Diagnosis Operation Date: 07/12/24 07:30 Pre-Op Diagnosis: (2) Pars defect with spondylolisthesis (3) Lumbosacral disc herniation (4) Spondylolisthesis, lumbosacral region Post-Op Diagnosis: (2) Pars defect with spondylolisthesis (3) Lumbosacral disc herniation (4) Spondylolisthesis, lumbosacral region I identified the patient and participated in the time-out.: Yes Procedure Operation Date: 07/12/24 07:30 Actual Procedures p L5-S1 Transforaminal Lumbar Interbody Fusion with Decompression, with Spinal Cord Monitoring(Not Applicable) - Jose Dewitt MD Surgeon Jose Dewitt MD Technical Sales Support Specialist Kendell SANDHU Estimated Blood Loss 150 Findings Consistent with Post-Op Diagnosis Specimens Specimen Description: No specimen per surgeon Drains Ty Drain (15fr) and Koenig Catheter
--- NOTE | 2024-07-12 12:56 | Operative Report ---
PG Post Operative Report Pre & Post Diagnosis Operation Date: 07/12/24 07:30 Pre-Op Diagnosis: (1) Pars defect with spondylolisthesis (2) Lumbosacral disc herniation (3) Lumbosacral Radiculopathy Post-Op Diagnosis: (1) Pars defect with spondylolisthesis (2) Lumbosacral disc herniation (3) Lumbosacral Radiculopathy I identified the patient and participated in the time-out.: Yes Procedure 1. TRANSFORAMINAL LUMBAR INTERBODY FUSION, POSTEROLATERAL FUSION L5-S1 (92961) 2. PLACEMENT OF INTERBODY DEVICE FOR FUSION L5-S1 (29523) 3. POSTERIOR NON-SEGMENTAL SPINAL INSTRUMENTATION L5-S1 (97248) 4. COMPLETE LAMINECTOMY AT SITE OF INTERBODY FUSION L5 (40373) 5. USE OF STEREOTACTIC NAVIGATION FOR SPINAL INSTRUMENTATION (65146) 6. USE OF LOCAL AUTOGRAFT/ALLOGRAFT FOR SPINAL FUSION (13916, 78447) Surgeon Jose Dewitt MD Global Recruiter Kendell SANDHU Estimated Blood Loss 150 Findings Consistent with Post-Op Diagnosis Specimens None Drains Ty Drain Anesthesia Type General Complications none Disposition Accompanied Patient To Recovery: Yes Indications Patient was met in the clinic setting where patient had severe radiculopathy which did not respond to conservative care. We discussed continued conservative care versus lumbar interbody fusion to completely remove the pressure on the nerve as well as the remainder of the disc. Risks and benefits were discussed with the patient in clinic and elected to proceed. Risks and benefits are clearly documented in the patient's clinic note. Description of Procedure I met the patient in the preoperative holding area, we again discussed the procedure to be performed today and patient agreed to proceed. Patient was brought to the operating room and placed under general anesthesia. Neuro monitoring leads attached, SCDs for DVT prophylaxis, received IV antibiotic for infection prophylaxis. Positioning: Following intubation, the patient was placed prone onto the Gonzalez table. Maximum obtainable lumbar lordosis was achieved. Care was taken to position padding under potential pressure points. Prepping and Draping: Patient was prepped and draped in the usual sterile fashion. Verbal time-out was performed and identified the patient by name and date of , all were in agreement on the correct procedure and we elected to proceed. Incision and Exposure: An incision was made between the spinous processes of L5 and S1. Electrocautery was utilized to control all bleeding. I went through the subcutaneous layer exposing the lumbodorsal fascia. The subcutaneous layer was stripped off to the side to gain exposure to the fascial layers. I carried out subperiosteal dissection down along the spinous processes and out the lamina to expose the L5 and superior S1 lamina. I then dissected out to expose the sacral ala and L5 transverse processes bilaterally. The facet capsules were completely removed within the fusion range. Insertion of Pedicle Screws Bilaterally: Preoperative Ct scan was loaded to the [employer] robot, pedicle screws were planned using the software at L5 and S1 bilaterally. The robot was calibrated and attached to the patient with a PSIS pin. The robotic arm was moved to each pedicle screw start site sequentially. High speed Midas drill was used to breach the cortex through the robotic arm. Next a tap was passed through the arm and a screw tract was cannulated. Pedicle screws of the appropriate size were then placed bilaterally from using PowerEase electric mule driver through the robotic arm. EMG was performed on all screws with appropriate threshold without concern. Motor evoked potentials were run without change. Fluoro shots showed the screws in good position. Transforaminal Lumbar Interbody Fusions, Decompressions, Posterior Fusion: Next, a complete laminectomy was performed at the L5 level in preparation. The spinous process was removed with Leksell rongeur and morselized for bone graft. The lamina was thinned with a high-speed bur and the remainder of the lamina was removed with Kerrison punch with a Roebling used to protect the dura. Ligamentum flavum was completely removed at this level. This provided excellent decompression of the bilateral traversing S1 nerve roots over the disc space at L5-S1. This bilateral decompression was greater than required for insertion of an interbody cage. A complete facetectomy was performed at the symptomatic side to allow placement of the interbody cage. After adequate nerve root decompression, I turned my att ention to performing a transforaminal lumbar interbody fusion. I performed a complete diskectomy at L5-S1. Distraction was done with pedicle screw based distractors. The cartilaginous endplates were removed with a series of curettes and rongeurs. Sclerotic bleeding bone was seen at both endplates following complete evacuation and cleaning of the disc space. Local autograft bone harvested from the laminectomy was packed into the disc space along with allograft bone. A TLIF cage was selected after using a trial to determine the appropriate size. The cage was then impacted to appropriate depth under fluoroscopy and expanded.. I then decorticated the remaining posterior lateral facet joints at L5-S1. The posterolateral gutters were packed with allograft material as well as the remainder of the local bone harvested from the laminectomies to encourage posterolateral fusion. Preformed lumbar rods were then placed and set screws applied and final tightened. Intraoperative fluoroscopic images were obtained, confirming appropriate screw and cage position, and overall lordotic alignment of the motion segments. Vancomycin powder was placed on the wound edges during closure as a standard prophylactic measure. A standard layer closure was done over a deep drain using strata fix suture. Following completion of the closure and application sterile dry compressive dressing, the patient was transferred back to the supine position on stretcher. Anesthesia was reversed, the patient extubated, and brought to recovery room in stable condition having tolerated the procedure well. I attest to the content of the Intraoperative Record and any orders documented therein. Any exceptions are noted below.
[2024-07-12] MEDS: HYDROmorphone INJ 2 MG/ML SYR/VIAL IV PRN (13:35)
--- NOTE | 2024-07-12 14:03 | Fluoroscopy Report ---
FL lumbar spine 2-3V CLINICAL HISTORY: L5-S1 TRANSFORAMINAL LUMBAR INTERBODY FUSION WITH DECOMPRESSION COMPARISON STUDY: Lumbar spine MRI May 31, 2024. Lumbar spine CT June 19, 2024. FLUOROSCOPY TIME: 38 seconds. Ka,r: 23.74 mGy FLUOROSCOPIC IMAGES: 7 FINDINGS: Fluoroscopy was provided during L5-S1 decompression and interbody fusion. Mild anterolisthe sis of L5 on S1 was present on preoperative MRI and CT. There are no unexpected radiopaque foreign geraldine dies. Hardware is intact. IMPRESSION: Fluoroscopy provided during L5-S1 decompression and interbody fusion. ACT 112: Negative or not required by law. Electronically signed by: Shon Gerber M.D. 07/12/2024 1:56 PM
--- NOTE | 2024-07-12 14:37 | Anesthesiology Progress Note ---
Date of Service July 12, 2024 Anesthesia Post Procedure Vital Signs Vital Signs: Temp Pulse Pulse Resp BP Pulse Ox O2 Del Method 07/12/24 14:15 36.4 C L 86 16 133/72 96 Nasal Cannula 07/12/24 14:05 36.4 C L 86 12 135/69 97 Nasal Cannula 07/12/24 13:55 36.4 C L 88 10 L 134/69 97 Nasal Cannula 07/12/24 13:45 78 11 L 120/66 95 Nasal Cannula 07/12/24 13:35 78 10 L 135/72 100 Oxymask 07/12/24 13:25 69 7 L 125/67 100 Oxymask 07/12/24 13:15 67 12 100/60 98 Oxymask 07/12/24 13:05 60 10 L 115/47 L 98 Oxymask 07/12/24 12:55 77 12 125/66 99 Oxymask 07/12/24 12:46 36.0 C L 81 8 L 130/67 99 Oxymask 07/12/24 06:32 36.8 C 87 20 154/89 H 96 Room Air O2 Flow Rate 07/12/24 14:15 1 07/12/24 14:05 1 07/12/24 13:55 2 07/12/24 13:45 2 07/12/24 13:35 5 07/12/24 13:25 5 07/12/24 13:15 10 07/12/24 13:05 10 07/12/24 12:55 10 07/12/24 12:46 10 07/12/24 06:32 Pain Intensity Left Lower Back: Pain Intensity: 3 Transfer of Care Handoff Completed per policy Notes Mental Status: alert / awake / arousable and participated in evaluation Nausea / Vomiting: adequately controlled Pain: adequately controlled Airway Patency, RR, SpO2: stable & adequate BP & HR: stable & adequate Hydration State: stable & adequate Anesthetic Complications: no major complications apparent and Pt Satisfied with anesthetic care
[2024-07-12] MEDS ORDERED: PROMETHAZINE 12.5 MG/50.5 ML BAG IV PRN (14:50)
[2024-07-12] MEDS ORDERED: bisacodyL 10 MG SUPP PR PRN (14:50)
[2024-07-12] MEDS ORDERED: MAGNESIUM HYDROXIDE SUSP 30 ML UDC PO PRN (14:50)
[2024-07-12] MEDS ORDERED: DO NOT ADMINISTER FLU VACCINE PRN (14:50)
[2024-07-12] MEDS ORDERED: SOD PHOSPHATE/SOD BIPHOSPHATE ENEMA 132 ML BTL PR PRN (14:50)
[2024-07-12] MEDS ORDERED: ALUMINUM/MAGNESIUM SUSP 30 ML UDC PO PRN (14:50)
[2024-07-12] MEDS ORDERED: FAMOTIDINE 20 MG TAB PO PRN (14:50)
[2024-07-12] MEDS ORDERED: hydrOXYzine HCl 25 MG TAB PO PRN (14:50)
[2024-07-12] MEDS ORDERED: diphenhydrAMINE Capsule 25 MG CAP PO PRN (14:50)
[2024-07-12] MEDS ORDERED: HYDROmorphone INJ 1 MG/ML SYRINGE IV PRN (14:50)
[2024-07-12] MEDS ORDERED: DO NOT ADMINISTER PNEUMOCOCCAL VACCINE PRN (14:50)
[2024-07-12] MEDS ORDERED: NALOXONE HCL 0.4 MG/1 ML VIAL/CARP IV PRN (14:50)
[2024-07-12] MEDS ORDERED: BETAMETHASONE VAL 0.1% CR 15 GM EXT PRN (15:06)
[2024-07-12] MEDS ORDERED: HYDROCODONE/ACETAMOPHEN 5/325MG TAB PO PRN (15:09)
--- NOTE | 2024-07-12 15:11 | Hospitalist Consultation ---
Date of Consultation July 12, 2024 Assessment & Plan (1) Status post lumbar spine surgery for decompression of spinal cord: S/p lumbar spine surgery with Dr. Dewitt on 07/12 Perioperative antibiotics, pain control, fluids, and DVT PPx per the primary team Postop lumbar spine x-ray revealed hardware intact Trialed patient off oxygen in the room Drop from 95% SpO2 on 2L NC to approximately 92% on room air Continue to titrate off supplemental oxygen therapy gradually Agree with a.m. CBC, BMP; we will follow (2) Hypertension: Continue diltiazem Agree with holding a.m. olmesartan (3) Diabetes mellitus: Last A1c at 6.7% on 06/25/2024 Continue metformin Advance to T2DM diet as tolerated Added BSG CHECKS ACHS Added hypoglycemia meds (4) Hypercholesteremia: Continue atorvastatin Plan Agree with current medical decision making: Disposition: MedSurg Advance diet as tolerated VTE PPx: SCDs/teds Thank you for allowing us to precipitate in the care of this patient, please re ach out any questions or concerns. We will continue to follow. Supervising Physician Co-Signing Physician Notes Patient seen and examined, chart reviewed, case discussed with Trevin Guerra PA-C and I agree with the assessment and plan as above except as otherwise noted Labs and images reviewed Valerie is a 69-year-old female past medical history of hypertension, diabetes, hyperlipidemia who presented for lumbar spine decompression due to lumbosacral disc herniation and radiculopathy. We are consulted for postoperative management. Postoperatively she is normotensive, without tachycardia, and has a minimal 2 L oxygen requirement. No underlying lung disease. She is seen at bedside. Is doing well does have some pain at her lateral left calf immediately postop. No swelling and no edema. Her daughter lower extremity Doppler to rule out DVT, patient reports she does not wish for this to be done at time of ass essment as feels it is more muscle soreness and certainly time course is very quick for this and she shows no deep calf pain or swelling so is reasonable to monitor for now. Otherwise she has no complaints. Radicular pain she had preop seems to have improved. Agree with management of hypertension/diabetes as above. Pain control, activity recommendations, DVT prophylaxis per primary team. History of Present Illness Reason for Consultation: Postop medical management Requesting Physician: Jose Dewitt MD Attending Physician: Jose Dewitt MD History of Present Illness Valerie is a pleasant 69-year-old female with PMH of lumbosacral radiculopathy, lumbosacral disc herniation, spondylolithiasis, HTN, and HLD. She presented on 07/12 for an L5-S1 transforaminal lumbar interbody fusion and decompression with Dr. Dewitt. Per review of operative report, EBL was listed as 150 cc, general anesthesia was used, and there were no reported intraoperative complications. Per review of patient's vitals postop, patient's SpO2 has been in the low 90s postop; still requiring supplemental oxygen. At time of consult, she reports that her lower back pain is 3/10. LBP is 5/10 at worst. She characterizes it as a constant, dull achy pain around her incision site. No radiation down the legs. She thinks that rolling over on her right side and getting off her back might alleviate the pain. She denies any tingling going down her legs, but does endorse some numbness in both legs bilaterally. Patient reports she has not been up since her surgery. She does feel fatigued at this time, but has no new complaints other than a dry cough, and low back pain. She has not tried to eat or drink since the surgery. Koenig catheter in place. She denies saddle anesthesia. No prior history of DVT/PE. She is not on supplemental oxygen at baseline or CPAP at night. SpO2 95% on 2L at time of consult; vitals otherwise stable. ROS: Patient endorses low back pain, numbness in the lower extremities bilaterally, dry cough, and fatigue. Patient denies fever, chills, sweats, dizziness/lightheadedness, headaches, sore throat, chest pain, chest palpitations, SOB, pleuritic CP, abdominal pain, N/V/D, saddle anesthesia, or recent changes in urinary/bowel habits. ADDENDUM: Alerted by nursing staff around 1800 that patient appeared "white" in color. Also reported only 60 mL of blood from her drain. All vital stable at that time. Per nurse, she was pushing Ancef, when the patient reported that she felt lightheaded/dizzy/nauseous. No syncope. All symptoms resolved within 4 to 5 minutes. Reassessed patient at bedside, and patient is sitting up eating Jeregulo-Neri and broth in her bed. She appears well and reports that all her symptoms have resolved. She does have a white pallor, which was present on initial assessment. Will obtain CBC at this time. Allergies Allergy/AdvReac Type Severity Reaction Status Date / Time oxycodone [From Percocet] AdvReac Severe Vomiting Verified 07/12/24 06:34 alendronate sodium AdvReac Intermediate Severe Verified 07/12/24 06:34 acid reflux atenolol AdvReac Intermediate Palpitation Verified 07/12/24 06:34 s empagliflozin AdvReac Intermediate Sore throat Verified 07/12/24 06:34 [From Jardiance] mepivacaine AdvReac Intermediate Tachycardia Verified 07/12/24 06:34 metoprolol AdvReac Intermediate Palpitation Verified 07/12/24 06:34 s risedronate sodium AdvReac Intermediate Severe Verified 07/12/24 06:34 reflux codeine AdvReac Mild GI upset Verified 07/12/24 06:34 Home Medications Medication Instructions Recorded Confirmed Type cholecalciferol (vitamin D3) 50 2,000 units PO QAM #30 caps 05/12/19 07/12/24 History mcg (2,000 unit) capsule mecobalamin (vitamin B12) 1,000 1,000 mcg PO QPM 06/02/21 07/12/24 History mcg chewable tablet betamethasone dipropionate 0.05 % 1 applic topical UD PRN SKIN RASH 05/04/22 07/12/24 Rx lotion #60 mL famotidine 20 mg tablet 20 mg PO QAM 11/24/22 07/12/24 History diltiazem HCl 240 mg 240 mg PO QPM #90 caps 10/19/23 07/12/24 Rx capsule,extended release 24 hr olmesartan 20 mg tablet 10 mg PO QAM 04/02/24 07/12/24 History calcitriol 0.5 mcg capsule 0.5 mcg PO BID #180 caps 04/15/24 07/12/24 Rx metformin 500 mg tablet,extended 500 mg PO BID #180 tabs 04/15/24 07/12/24 Rx release 24 hr gabapentin 300 mg capsule 300 mg PO BID 06/19/24 07/12/24 History atorvastatin 20 mg tablet 20 mg PO QPM #90 tabs 07/08/24 07/12/24 Rx Patient History Medical History Carotid bruit Hx noted per remote records. Carotid duplex done 08/21/13 for evaluation of carotid bruit- B/L ICA "withing normal limits by duplex imaging"/No stenosis found. No carotid bruit noted at PAT visit 06/25/24 Diabetes mellitus Diverticulosis of colon Foraminal stenosis of lumbosacral region GERD (gastroesophageal reflux disease) History of colon polyps History of endometriosis History of nephrolithiasis (04/2023) Unsure if passed, no current pain Hx of irritable bowel syndrome Hypercholesteremia Hypertension Irritable bowel syndrome Lumbosacral disc herniation Lumbosacral spondylosis Osteoporosis Surgical History H/O section 1981 History of anesthesia reaction Slow to wake after hernia repair (2014) History of incisional hernia repair Laparoscopic Repair of Incisional Hernia Right Lower Quadrant with 10cm SurgiMesh (12/01/22): Grade view 1, MAC#3, ETT 7 at [facility] Abd wall exploration resection inc fat hernia repair (2014) History of laparoscopy multiple Hx of colonoscopy S/P anal fissurectomy (2004) Tear in rectum repaired S/P appendectomy S/P arthroscopy of shoulder (2006) left Rotator cuff S/P dilation and curettage S/P YOLY-BSO (total abdominal hysterectomy and bilateral salpingo-oophorectomy) (2004) S/P wrist surgery (2010) right Family History Brother Myocardial infarction Grandmother (Maternal) Breast cancer Stroke Sister Diabetes Obesity Mother Diabetes Heart disease Family history of colonic polyps Hypertension Father Heart disease Hypertension Other No family history of adverse response to anesthesia Denies family history of Ovarian cancer Prostate cancer Colorectal cancer Social History Smoking Status: Never smoker Second Hand Exposure: No; Do You Dip or Chew Tobacco: No; Tobacco Cessation Education Requested by Patient: No Hx Alcohol Use: No Hx Substance Use: No Preferred Language: Kazakh Communication Ability: Effective Visual Impairment: No Limitations Hearing Ability: Normal Director Of Oncology Required: No Beliefs That Will Affect Care: None marital status: Current Living Situation: Spouse current occupational status: retired current occupation: [employer] Other Information That Helps Us Care for You: No Feels Safe at Home: Yes Safety Concerns: Feels Safe At This Time Childhood Exposure to Second-Hand Smoke: No Diet: other and regular Diet Comment: healthy caffeine: Yes during the past year weight has: remained stable Dental Care, Regularly: Yes Physical Activity Frequency: 3-4 Times per Week Seatbelt Use: always Sunscreen Use: Yes Assistive Devices: Contacts and Glasses Assistive Devices Comment: 2 removable plates Review of Systems Review of Systems: See HPI above Physical Exam Physical Exam: General: no acute distress; lethargic; non-toxic appearing; well-nourished; cooperative; SpO2 95% on 2L NC HEENT: normocephalic, atraumatic; no scleral icterus; PERRLA; vision and hearing intact; dry, cracking around the lips Neck: supple; no lymphadenopathy; trachea midline Skin: warm, dry without signs of tenting; pallor; no cyanosis; no rashes, bruising, lesions, or erythema noted CV: chest wall NTP; RRR; S1/S2 normal; no murmurs/rubs/gallops; pulses intact and symmetric at radial, DP, and PT Lungs: no acute respiratory distress; symmetrical chest wall expansion; clear breath sounds across all lung slagado w/o adventitious sounds; no wheezing ABD: Soft, NTP; BS present; no rebound/guarding; no distention Back: Patient was able to roll onto her right side with assistance (nurse present in the room); her upper spine is NTP; lower spine is mildly TTP around incision site; surgical dressing without signs of drainage or erythema MSK: no tics or fasciculations; no edema noted in the LEs b/l, nonerythematous; patient demonstrates ability to wiggle toes bilaterally and lift legs off the bed, albeit slowly and with some pain Neuro: A&Ox3; normal mood and affect; fluent speech; no focal deficits; patient reports that sensation is intact and symmetric in the lower extremities bilaterally assessed via light touch at the feet Trialed patient off of oxygen Her SpO2 dropped from 95% on 2L NC to around 92% on room air Results & Data Results & Data Vital Signs (Past 12 Hours) Vital Signs Temp Pulse Pulse Resp BP Pulse Ox O2 Del Method 07/12/24 14:45 36.5 C 89 16 118/69 94 Nasal Cannula 07/12/24 14:15 36.4 C L 86 16 133/72 96 Nasal Cannula 07/12/24 14:05 36.4 C L 86 12 135/69 97 Nasal Cannula 07/12/24 13:55 36.4 C L 88 10 L 134/69 97 Nasal Cannula 07/12/24 13:45 78 11 L 120/66 95 Nasal Cannula 07/12/24 13:35 78 10 L 135/72 100 Oxymask 07/12/24 13:25 69 7 L 125/67 100 Oxymask 07/12/24 13:15 67 12 100/60 98 Oxymask 07/12/24 13:05 60 10 L 115/47 L 98 Oxymask 07/12/24 12:55 77 12 125/66 99 Oxymask 07/12/24 12:46 36.0 C L 81 8 L 130/67 99 Oxymask 07/12/24 06:32 36.8 C 87 20 154/89 H 96 Room Air O2 Flow Rate 07/12/24 14:45 1 07/12/24 14:15 1 07/12/24 14:05 1 07/12/24 13:55 2 07/12/24 13:45 2 07/12/24 13:35 5 07/12/24 13:25 5 07/12/24 13:15 10 07/12/24 13:05 10 07/12/24 12:55 10 07/12/24 12:46 10 07/12/24 06:32 Laboratory Results Abnormal lab results 07/12/24 07/12/24 Range/Units 06:36 12:54 POC Glucose 142 H 166 H (70-99) mg/dl Diagnostic Findings Lumbar Spine X-Ray 07/12/24 07:30 FL lumbar spine 2-3V CLINICAL HISTORY: L5-S1 TRANSFORAMINAL LUMBAR INTERBODY FUSION WITH DECOMPRESSION COMPARISON STUDY: Lumbar spine MRI May 31, 2024. Lumbar spine CT June 19, 2024. FLUOROSCOPY TIME: 38 seconds. Ka,r: 23.74 mGy FLUOROSCOPIC IMAGES: 7 FINDINGS: Fluoroscopy was provided during L5-S1 decompression and interbody fusion. Mild anterolisthesis of L5 on S1 was present on preoperative MRI and CT. There are no unexpected radiopaque foreign bodies. Hardware is intact. IMPRESSION: Fluoroscopy provided during L5-S1 decompression and interbody fusion. ACT 112: Negative or not required by law. Electronically signed by: Shon Gerber M.D. 07/12/2024 1:56 PM PG Care Time/CCT Total # of Minutes Spent Total Time Spent with Patient: Total time spent is greater than 50% in coordination of care (as documented) at patient's floor/unit and/or counseling patient: Coding [place] [address] IN/OBS CONSULT LVL 3,45M Patient Type Established Medical Decision Making Moderate Complexity Diagnoses Status post lumbar spine surgery for decompression of spinal cord Z98.890 Hypertension I10 Diabetes mellitus E11.9 Hypercholesteremia E78.00
[2024-07-12] MEDS: KETOROLAC TROMETHAMINE 15 MG/ML VIAL IV SCH (15:50)
[2024-07-12] MEDS ORDERED: GLUCOSE 10 TAB/TUBE PO PRN (15:52)
[2024-07-12] MEDS ORDERED: CARBOHYDRATES FOR HYPOGLYCEMIA PO PRN (15:52)
[2024-07-12] MEDS ORDERED: GLUCOSE 40% GEL 15 GM TUBE PO PRN (15:52)
[2024-07-12] MEDS ORDERED: DEXTROSE 50% 50 ML SYRINGE IV PRN (15:52)
[2024-07-12] MEDS: metFORMIN HCL ER 500 MG TABCR PO SCH (17:15)
[2024-07-12 18:58] LABS: Hematocrit (blood only) 30.7 % (37.0-47.0); Hemoglobin 9.8 g/dl (12.0-16.0); Mean Corpuscular Hemoglobin 29.1 pg (25.0-34.0); Mean Corpuscular Hgb Conc 31.9 g/dL (32.0-36.0); Mean Corpuscular Volume 91.1 fL (80.0-100.0); Mean Platelet Volume 9.5 fL (9.4-12.4); Platelet Count 240 K/uL (130-400); RDW Coefficient of Variation 13.4 % (11.5-14.5); RDW Standard Deviation 44.5 fL (36.4-46.3); Red Blood Count 3.37 M/uL (4.20-5.40); White Blood Count 13.79 K/ul (4.8-10.8)
[2024-07-12 19:14] LABS: Basophils # (auto) 0.01 K/uL (0.00-0.20); Basophils % (auto) 0.1 %; Echinocytes 1+; Immature Granulocytes % (auto) 0.7 %; Lymphocytes # (auto) 0.68 K/uL (1.20-3.40); Lymphocytes % (auto) 4.9 %; Monocytes # (auto) 0.16 K/uL (0.11-0.59); Monocytes % (auto) 1.2 %; Neutrophils # (auto) 12.84 K/uL (1.40-6.50); Neutrophils % (auto) 93.1 %
[2024-07-12] MEDS: ATORVASTATIN 20 MG TAB PO SCH (20:09)
[2024-07-12] MEDS: CALCITRIOL 0.25 MCG CAPSULE PO SCH (20:10)
[2024-07-12] MEDS: CYANOCOBALAMIN (B-12) 500 MCG TABLET PO SCH (20:10)
[2024-07-12] MEDS: GABAPENTIN 300 MG CAP PO SCH (20:10)
[2024-07-12] MEDS: DOCUSATE SODIUM/SENNA 50/8.6MG TAB PO SCH (20:10)
[2024-07-12] MEDS: dilTIAZem HCL 240 MG CAPCR PO SCH (20:10)
[2024-07-12] MEDS: INSULIN ASPART PER UNIT CHARGE SC SCH (22:22)
[2024-07-12] MEDS: ONDANSETRON 4 MG OD TAB PO PRN (22:26)
[2024-07-12] MEDS: oxyCODONE/ACETAMINOPHEN 5mg/325mg TAB PO PRN (22:58)
[2024-07-13] MEDS: POLYETHYLENE (MIRALAX) 17 GM PACK PO SCH (05:17)
[2024-07-13 06:28] LABS: Basophils # (auto) 0.02 K/uL (0.00-0.20); Basophils % (auto) 0.1 %; Eosinophils # (auto) 0.01 K/uL (0.00-0.50); Eosinophils % (auto) 0.1 %; Hematocrit (blood only) 27.2 % (37.0-47.0); Hemoglobin 8.8 g/dl (12.0-16.0); Immature Granulocytes # (auto) 0.14 K/uL (0.01-0.20); Immature Granulocytes % (auto) 0.8 %; Lymphocytes # (auto) 0.97 K/uL (1.20-3.40); Lymphocytes % (auto) 5.5 %; Mean Corpuscular Hemoglobin 29.4 pg (25.0-34.0); Mean Corpuscular Hgb Conc 32.4 g/dL (32.0-36.0); Mean Platelet Volume 9.9 fL (9.4-12.4); Monocytes # (auto) 0.64 K/uL (0.11-0.59); Monocytes % (auto) 3.6 %; Neutrophils # (auto) 15.82 K/uL (1.40-6.50); Neutrophils % (auto) 89.9 %; Platelet Count 241 K/uL (130-400); RDW Coefficient of Variation 13.3 % (11.5-14.5); RDW Standard Deviation 43.8 fL (36.4-46.3); Red Blood Count 2.99 M/uL (4.20-5.40)
[2024-07-13 06:52] LABS: BUN Creatinine Ratio 18.8 (10-20); Calcium 9.6 mg/dl (8.6-10.3); Creatinine Clr Calc Pharmacy 37.5 ml/min
--- NOTE | 2024-07-13 08:07 | Hospitalist Progress Note ---
Date of Service July 13, 2024 Assessment & Plan (1) Status post lumbar spine surgery for decompression of spinal cord: Plan: S/p lumbar spine surgery with Dr. Dewitt on 07/12 Trialed patient off oxygen in the room Drop from 95% SpO2 on 2L NC to approximately 92% on room air Continue to titrate off supplemental oxygen therapy gradually acute blood loss anemia, hgb 8.8, will follow no transfusion at this time (2) Hypertension: Plan: Continue diltiazem, reduce dose holding a.m. olmesartan (3) Diabetes mellitus: Plan: Last A1c at 6.7% on 06/25/2024 Continue metformin Advance to T2DM diet as tolerated Added BSG CHECKS ACHS Added hypoglycemia meds (4) Hypercholesteremia: Plan: Continue atorvastatin Plan VTE PPx: SCDs/teds Admission and Anticipated Discharge Date Admission Date: July 12, 2024 Subjective Patient is doing well still with VEGA drain with serosanguineous drainage Going to remove Koenig catheter to get up out of bed today. Other focal issues at this time Physical Exam Physical Exam: Awake alert appropriate no radicular pain or reduction in sensation Card exam is regular lungs are clear Abdomen NABS and soft Results & Data Results & Data Vital Signs (Past 12 Hours) Vital Signs Temp Pulse Resp BP Pulse Ox O2 Del Method 07/13/24 03:49 97.9 F 81 16 108/59 L 94 Room Air 07/12/24 23:30 98.2 F 88 16 102/54 L 96 Room Air Laboratory Results Reviewed CBC mild postoperative acute blood loss anemia mild leukocytosis Reviewed chemistry PG Care Time/CCT Total # of Minutes Spent Total Time Spent with Patient: Total time spent is greater than 50% in coordination of care (as documented) at patient's floor/unit and/or counseling patient: Coding Level of Care Code 14644 SUB INP/OBS CARE 3/50MIN Diagnoses Status post lumbar spine surgery for decompression of spinal cord Z98.890 Hypertension I10 Diabetes mellitus E11.9 Hypercholesteremia E78.00
--- NOTE | 2024-07-13 08:35 | XRay Report ---
EXAM: XR lumbar spine 2-3V CLINICAL HISTORY: Post op, lumbar surgery on 07/12/24 TECHNIQUE: X-ray images of the lumbar spine were obtained in 2 views: Anteroposterior (AP) and lateral projections. COMPARISON: X-ray dated 04/30/2024. FINDINGS: Alignment: Internal fixation at L5-S1 with intervertebral disc cage. Grade 1 anterolisthesis of L5 over S1. Vertebral Bodies: Vertebral bodies are of normal height and morphology. No evidence of fractures, compression deformities, or significant osseous lesions. Marginal osteophytes are seen at multiple levels. Intervertebral Disc Spaces: The rest of the intervertebral disc spaces are normal. Soft Tissues: Surgical sutures are noted on the skin midline at the L4 and L5 levels. Additional Findings: Multiple surgical sutures are noted in the pelvis. IMPRESSION: 1. Internal fixation at L5-S1 with intervertebral disc cage and a grade 1 anterolisthesis of L5 over S1. The listhesis measures 6.5 mm, previously was 10 mm on X-ray dated 04/30/2024. 2. Mild lumbar spondylosis. Disclaimer: A subtle bone abnormality or fracture may not be readily apparent on X-rays, thus clinical correlation and further imaging including follow-up CT, MRI, or follow-up X-rays are advised as needed. Electronically signed by Kira Villagomez 07-13-2024 08:34 AM
[2024-07-13] MEDS: CHOLECALCIFEROL 25 MCG (1000 UNITS) TAB PO SCH (08:59)
[2024-07-13] MEDS: FAMOTIDINE 20 MG TAB PO SCH (08:59)
[2024-07-13] MEDS ORDERED: METHOCARBAMOL 500 MG TABLET PO PRN (09:47)
--- NOTE | 2024-07-13 10:00 | Orthopedic Progress Note ---
Date of Service July 13, 2024 Assessment & Plan (1) S/P lumbar fusion: (2) Acute blood loss anemia: Hgb 8.8 this AM, vitals acceptable, will monitor Plan s/p TLIF SCDs, ambulate pain control - doing well with percocet and nausea meds cont drain dc shea when ambulating better after PT Subjective s/p TLIF, doing well this AM. Incisional soreness, no leg pain. Review of Systems All systems reviewed & are unremarkable except as noted in HPI & below. Physical Exam drain functioning 5/5 strength L2-S1 myotomes SILT L2-S1 dermatomes Results & Data Results & Data Diagnostic Findings xrays reviewed, good position of L5-S1 instrumentation and interbody spacer, sponylolisthesis improved from pre op PG Care Time/CCT Total # of Minutes Spent Total Time Spent with Patient: Total time spent is greater than 50% in coordination of care (as documented) at patient's floor/unit and/or counseling patient: Coding Level of Care Code 51889 Post Operative Follow-Up Diagnoses S/P lumbar fusion Z98.1 Acute blood loss anemia D62
[2024-07-13] MEDS: ACETAMINOPHEN 500 MG TAB PO PRN (10:22)
[2024-07-13] MEDS ORDERED: METHOCARBAMOL 750 MG TABLET PO PRN (11:48)
[2024-07-13] MEDS: HYDROmorphone INJ 0.5 MG/0.5 ML SYR IV PRN (12:48)
[2024-07-13 15:14] VITALS: RESP 16
[2024-07-13] MEDS: dilTIAZem HCL 120 MG CAPCR PO SCH (20:55)
--- NOTE | 2024-07-14 09:37 | Orthopedic Progress Note ---
Date of Service July 14, 2024 Assessment & Plan (1) S/P lumbar fusion: phuong bear as tolerated pain control mobilize will decrease suction on drains DVT study LLE cont drain hopefully home tomorrow (2) Acute blood loss anemia: vitals WNL, monitor for symptoms Subjective s/p TLIF, moving well with PT. Some intermittent LLE cramp, - felipe sign. Breathing well, pain controlled. Has not trialed muscle relaxer yet. Review of Systems All systems reviewed & are unremarkable except as noted in HPI & below. Physical Exam drain functioning neuro exam stable, no deficits - felipe sign Results & Data Results & Data Laboratory Results . Diagnostic Findings . PG Care Time/CCT Total # of Minutes Spent Total Time Spent with Patient: Total time spent is greater than 50% in coordination of care (as documented) at patient's floor/unit and/or counseling patient: Coding Level of Care Code 31565 Post Operative Follow-Up Diagnoses S/P lumbar fusion Z98.1 Acute blood loss anemia D62
--- NOTE | 2024-07-14 10:29 | Ultrasound Report ---
BILATERAL LOWER EXTREMITY VENOUS DOPPLER HISTORY: Acute pain and swallowing of the legs LLE cramps s/p surgery COMPARISON STUDY: None FINDINGS: There is normal compressibility, flow, and augmentation within the bilateral lower extremit y deep venous systems. IMPRESSION: No DVT within the right or left lower extremity. ACT 112: Negative or not required by law. Electronically signed by: Alexey Oneal M.D. 07/14/2024 10:27 AM
--- NOTE | 2024-07-14 13:37 | Hospitalist Progress Note ---
Date of Service July 14, 2024 Assessment & Plan (1) Status post lumbar spine surgery for decompression of spinal cord: Plan: S/p lumbar spine surgery with Dr. Dewitt on 07/12 Trialed patient off oxygen in the room Drop from 95% SpO2 on 2L NC to approximately 92% on room air Continue to titrate off supplemental oxygen therapy gradually acute blood loss anemia, hgb 8.8, will follow no transfusion at this time left calf pain, neg doppler for DVT will give vit b1, b12 and magnesium, check vit D level in am (2) Hypertension: Plan: Continue diltiazem, reduce dose holding a.m. olmesartan (3) Diabetes mellitus: Plan: Last A1c at 6.7% on 06/25/2024 Continue metformin Advance to T2DM diet as tolerated Added BSG CHECKS ACHS Added hypoglycemia meds (4) Hypercholesteremia: Plan: Continue atorvastatin Plan VTE PPx: SCDs/teds Admission and Anticipated Discharge Date Admission Date: July 12, 2024 Subjective Patient is doing well still with VEGA drain with serosanguineous drainage some calf pain, checked doppler, negative will try some muscle relaxation meds and topical creams Physical Exam Physical Exam: Awake alert appropriate no radicular pain or reduction in sensation Card exam is regular lungs are clear Abdomen NABS and soft left calf without swelling or chords Results & Data Results & Data Vital Signs (Past 12 Hours) Vital Signs Temp Pulse Resp BP Pulse Ox O2 Del Method 07/14/24 07:21 97.9 F 76 16 126/71 96 Room Air Laboratory Results review poc glucose ordered lab checks 07/15 PG Care Time/CCT Total # of Minutes Spent Total Time Spent with Patient: Total time spent is greater than 50% in coordination of care (as documented) at patient's floor/unit and/or counseling patient: Coding Level of Care Code 15009 SUB INP/OBS CARE 3/50MIN Diagnoses Status post lumbar spine surgery for decompression of spinal cord Z98.890 Hypertension I10 Diabetes mellitus E11.9 Hypercholesteremia E78.00
[2024-07-14] MEDS: THIAMINE HCL 100 MG in SYRINGE 9 ML IV STA (14:39)
[2024-07-14] MEDS: MAGNESIUM SULFATE / D5W 1 GM/100 ML BAG IV ONE (14:39)
[2024-07-14] MEDS: CYANOCOBALAMIN (B-12) 500 MCG TABLET PO ONE (14:40)
[2024-07-14] MEDS: ONDANSETRON INJ 2 MG/ML 2 ML VIAL IV PRN (15:03)
[2024-07-14 15:19] VITALS: TEMP 98.1
[2024-07-14 20:12] VITALS: O2SAT 92
[2024-07-15 07:13] VITALS: BP 127/75
[2024-07-15 08:33] LABS: Hematocrit (blood only) 28.1 % (37.0-47.0); Mean Corpuscular Hemoglobin 29.4 pg (25.0-34.0); Mean Corpuscular Volume 91.8 fL (80.0-100.0); Mean Platelet Volume 10.2 fL (9.4-12.4); Platelet Count 240 K/uL (130-400); RDW Coefficient of Variation 13.5 % (11.5-14.5); RDW Standard Deviation 45.2 fL (36.4-46.3); Red Blood Count 3.06 M/uL (4.20-5.40); White Blood Count 10.64 K/ul (4.8-10.8)
[2024-07-15] MEDS: METHOCARBAMOL 750 MG TABLET PO PRN (08:40)
[2024-07-15 08:41] LABS: BUN Creatinine Ratio 23.5 (10-20); Calcium 9.8 mg/dl (8.6-10.3); Creatinine Clr Calc Pharmacy 38.1 ml/min; Magnesium 1.6 mg/dl (1.7-2.4); Potassium 4.2 mmol/L (3.5-5.1)
[2024-07-15] MEDS ORDERED: METHOCARBAMOL 500 MG TABLET PO PRN (10:01)
--- NOTE | 2024-07-15 10:43 | Orthopedic Progress Note ---
Date of Service July 15, 2024 Assessment & Plan (1) Acute blood loss anemia: hgb stable, monitor (2) S/P lumbar fusion: leg pain improved but intermittent, responds well to muscle relaxer and pain meds dc drain, change dressing scds will check CT to evaluate screw position, appear to be in good position on xrays likely home later today as long as ok with hospital medicine and ct normal Subjective Reports intermittent left calf pain, dvt study negative. Likely recovery of nerve pain, she is ambulating, pain is not constant. Overall doing well and feels ready to go home, voiding. Review of Systems All systems reviewed & are unremarkable except as noted in HPI & below. Physical Exam neuro exam stable, no deficits drain functioning, minimal output and 70cc over 15 hours, will dc drain Results & Data Results & Data Laboratory Results . Diagnostic Findings negative dvt study PG Care Time/CCT Total # of Minutes Spent Total Time Spent with Patient: Total time spent is greater than 50% in coordination of care (as documented) at patient's floor/unit and/or counseling patient: Coding Level of Care Code 73653 Post Operative Follow-Up Diagnoses Acute blood loss anemia D62 S/P lumbar fusion Z98.1
--- NOTE | 2024-07-15 11:09 | Discharge Summary ---
Date of Service July 15, 2024 Principal Diagnosis Same as "Discharge Diagnosis" noted below under Discharge Instructions. Discharge Exam neuro exam stable, no deficits drain functioning, minimal output and 70cc over 15 hours, will dc drain Discharge Data Consultations 07/12/24 14:50 Consult Hospitalist Routine Procedures Performed Operation Date: 07/12/24 07:30 Actual Procedures p L5-S1 Transforaminal Lumbar Interbody Fusion with Decompression, with Spinal Cord Monitoring(Not Applicable) - Jose Dewitt MD Ordered Studies 07/12/24 07:30 FL lumbar spine 2-3V Routine 07/14/24 09:38 US venous doppler LE BI Urgent 07/15/24 10:49 CT lumbar spine wo con Routine Hospital Course (1) Acute blood loss anemia: (2) S/P lumbar fusion: (3) Diabetes mellitus: (4) Hypercholesteremia: (5) Hypertension: Hypertension type: unspecified Qualified Code(s): I10 - Essential (primary) hypertension (6) Spondylolisthesis, lumbosacral region: (7) Lumbosacral disc herniation: Plan Patient was admitted postoperatively for pain control and mobilization with physical therapy. They worked with physical therapy and met all goals. Pain was controlled with IV pain medication and transitioned to oral medications. Normal return of bowel and bladder function. They worked with physical therapy, vital signs were acceptable, no need for transfusion, deemed safe for discharge. PG Care Time/CCT Total # of Minutes Spent Total Time Spent with Patient: Total time spent is greater than 50% in coordination of care (as documented) at patient's floor/unit and/or counseling patient: Discharge Plan Discharge Items Patient Disposition: Home - Self-Care Reason For Visit: S/P LUMBAR TLIF Discharge Diagnosis: Lumbosacral Radiculopathy Lumbosacral spondylolisthesis s/p Lumbar Fusion Condition on Discharge: Good Activity: As commented below Activity Comment: follow post op instructions Lifting: No more than 10 pounds Bathing Comment: follow instruction sheet Non-emergency contact: Surgeon Call non-emergency contact if: your symptoms worsen, your pain is worsening, your temperature is above 101, your wound has increased redness and your wound has increased drainage Follow-up/Referrals: Brando Henderson MD [Primary Care Provider] - Diet: Carb Consistent or DM2 Addtl Attending Provider Instructions: follow post op instruction sheet Pending Studies at Discharge: No Stand-Alone Forms: My [facility], Smoking Cessation Medications and DC Order Prescriptions: New ondansetron 4 mg tablet,disintegrating 4 mg PO Q6H PRN (Reason: nausea and vomiting) Qty: 30 1RF methocarbamol 500 mg tablet 500 mg PO Q6H PRN (Reason: muscle spasms) 30 Days Qty: 120 0RF oxycodone-acetaminophen [Percocet] 7.5-325 mg tablet 1 tab PO Q6H PRN (Reason: pain) 20 Days Qty: 75 0RF Continued diltiazem HCl 240 mg capsule,extended release 24hr 240 mg PO QPM Qty: 90 3RF calcitriol 0.5 mcg capsule 0.5 mcg PO BID Qty: 180 3RF metformin 500 mg tablet extended release 24 hr 500 mg PO BID Qty: 180 3RF atorvastatin 20 mg tablet 20 mg PO QPM Qty: 90 3RF cholecalciferol (vitamin D3) 2,000 unit capsule 2,000 units PO QAM Qty: 30 betamethasone dipropionate 0.05 % lotion 1 applic topical UD PRN (Reason: SKIN RASH) Qty: 60 1RF Rx Instructions: Apply to affected areas on scalp BID (AM & PM) x 2 weeks olmesartan 20 mg tablet 10 mg PO QAM famotidine 20 mg Tablet 20 mg PO QAM mecobalamin (vitamin B12) 1,000 mcg tablet,chewable 1,000 mcg PO QPM gabapentin 300 mg capsule 300 mg PO BID Rx Instructions: Start with one capsule at night for 4 days, if incomplete relief increase to one capsule at night and one in AM, if needed increase to one capsule three times daily. If adverse side effects decrease medication by one capsule every three days until off. Discharge Orders: Discharge Order (Routine); Ordered 07/15/24 Ordered By: Jose Dewitt Admission Data Admit Date/Time: 07/14/24 16:24 Attending Provider: Jose Dewitt Admit Provider: Jose Dewitt Primary Care Provider: Brando Henderson Other Providers: Gilberto Camp
--- NOTE | 2024-07-15 12:37 | CT Scan Report ---
CT lumbar spine wo con HISTORY: 69 years-old Female evaluate screw position, intermittent LLE pain chronic low back pain wi th prior surgery and fusion. COMPARISON: 06/19/2024 CT, MRI 05/31/2024, fluoroscopic images 07/12/2024, CT abdomen and pelvis 024 TECHNIQUE: Multiple axial CT images of the lumbar spine were obtained without IV contrast. A dose low ering technique was used consistent with the principals of BRIAN. FINDINGS: Patient is status post laminectomy with discectomy, posterior and bilateral madhav and screw fusion at L 5-S1. 3 mm anterolisthesis L5 on S1 redemonstrated along with chronic L5 pars defects. The hardware a ppears intact. There are midline skin jenny. Postoperative fluid collection within the operative be d is noted with ill-defined margins containing air and a surgical drainage catheter. The collection m easures up to approximately 4.6 x 3.4 cm. Suboptimal visualization of the central canal and neural fo ramen by CT technique and also secondary to the streak artifact. No acute fracture, subluxation or en dplate erosion. Moderate left-sided hydroureteronephrosis. The previously noted 4 mm calculus at the superior pole le ft kidney is not visualized. Punctate nonobstructing calculus at the superior pole right kidney. IMPRESSION: 1. Chronic L5 pars defects with 3 mm anterolisthesis, previously 7 mm. Status post laminectomy with p osterior interbody madhav and screw fusion and discectomy at this level. The hardware appears intact. 2. Postoperative fluid collection with surgical drainage catheter. 3. Moderate left-sided hydroureteronephrosis. The 4 mm calculus of the left kidney seen on the 2023 study is no longer present. Findings are suggestive of a distal obstructing ureteral calculus wh ich is not imaged on this exam. Correlate with urinalysis. 4. Right nephrolithiasis. 5. No acute fracture identified. ACT 112: Negative or not required by law. The above report was generated using voice recognition software. It may contain grammatical, syntax o r spelling errors. Electronically signed by: Alexey Oneal M.D. 07/15/2024 12:35 PM
[2024-07-15 14:28] VITALS: PULSE 86
--- NOTE | 2024-07-15 15:53 | XRay Report ---
EXAM:Radiographs of the Lumbosacral Spine 3 Views INDICATION: Evaluate instrumentation. TECHNIQUE: Frontal, lateral and spot lateral views obtained. COMPARISON:07/13/2024 FINDINGS: Limitations: None. Vertebrae: Grade 1 L5-S1 anterolisthesis and facet arthrosis. No fracture. Lateral bony fusion masses noted L5-S1. No change in intact well-seated bilateral L5 and S1 pedicle screws with short fixation bars. No change. Disc spaces: Well-contained intervertebral disc spacer L5-S1 unchanged. Bony foraminal stenosis noted at this level. Soft tissues: No abnormality noted. No radiopaque foreign body noted. Tubes, lines and devices: There is a drain in the posterior soft tissues at the operative level. IMPRESSION: No interval change posterior L5-S1 hardware fusion at L5-S1 intervertebral disc space placement. ACT 112: Negative or not required by law. Electronically signed by Breanna Rascon 07-15-2024 3:52 PM
== END 2024-07-15 15:20 | disposition home or self-care (01) | DRG 402 ==
LOC: ASU 06:12 → 3W 06:12